=== PATIENT | female | born 1955 | race Caucasian/White ===

== ENCOUNTER 2017-09-30 07:59 | Emergency (ER) | payer OTHER ==
[~2017-09-30] VITALS: Ht 160 cm; Wt 56.2 kg
--- NOTE | 2017-09-30 07:59 | NUR ---
Patient BIBA to bed 8 at this time.
[2017-09-30 08:08] VITALS: BP 126/64
--- NOTE | 2017-09-30 08:15 | NUR ---
PATIENT EVA C/O ALOC x TODAY @ 0700. EMS STATES PT HAD BLOOD SUGAR OF 35 ON SCENE, WAS GIVEN 25GM OF D10 AND BLOOD SUGAR WAS [address]PITAL. PT IS AAOX4 NOW, NO S/S OF DISTRESS, DENIES PAIN, DENIES N/V/D, ABLE TO MOVE ALL EXTREMITIES. SKIN IS PINK/WARM/DRY; PATIENT DENIES PAIN VSS; PATIENT POSITIONED FOR COMFORT; HOB ELEVATED; BEDRAILS UP X2; BED DOWN. ER MD MADE AWARE OF PT STATUS.
--- NOTE | 2017-09-30 08:16 | NUR ---
Patient being evaluated by physician at bedside.
--- NOTE | 2017-09-30 08:39 | NUR ---
BREAKFAST OFFERED. PT IS ABLE TO EAT AND TOLERATED FOOD.
[2017-09-30 08:55] LABS: BASOPHILS % (AUTO) 0.3 % (0.0-2.0); EOSINOPHILS % (AUTO) 0.3 % (0.0-4.0); HEMOGLOBIN 10.8 g/dL (12.0-16.0); LYMPHOCYTES # (AUTO) 0.3 K/uL (2.5-16.5); LYMPHOCYTES % (AUTO) 9.2 % (20.5-51.1); MEAN CORPUSCULAR HEMOGLOBIN 30 pg (27-31); MEAN CORPUSCULAR HGB CONC 34 g/dL (33-37); MONOCYTES # (AUTO) 0.2 K/uL (0.8-1.0); MONOCYTES % (AUTO) 6.1 % (1.7-9.3); NEUTROPHILS # (AUTO) 2.5 K/uL (1.8-7.7); NEUTROPHILS % (AUTO) 84.1 % (42.2-75.2); PLATELET COUNT (AUTO) 127 K/uL (140-450); RED BLOOD CELL COUNT(AUTO) 3.63 MIL/uL (4.20-5.40); RED CELL DISTRIBUTION WIDTH 13.2 % (11.6-13.7)
[2017-09-30 09:38] LABS: ANION GAP 12.8 (8-16); CARBON DIOXIDE 22.4 mmol/L (21-32); CREATININE 1.2 mg/dL (0.6-1.3); POTASSIUM 4.2 mmol/L (3.5-5.1)
[2017-09-30 09:42] LABS: ALBUMIN 3.6 g/dL (3.4-5.0); TOTAL BILIRUBIN 0.4 mg/dL (0.0-1.0)
[2017-09-30 10:18] VITALS: BP 99/41
--- NOTE | 2017-09-30 10:18 | NUR ---
Patient discharged with v/s stable. IV site removed, Written and verbal after care instructions given and explained. Patient verbalized understanding. Ambulatory with steady gait. All questions addressed prior to discharge. Advised to follow up with PMD.
== END 2017-09-30 10:18 | disposition home or self-care (01) ==
LOC: MED 07:59 → EDBD 07:59 → MED 10:18
DX: G93.40 Encephalopathy, unspecified (principal); E11.649 Type 2 diabetes mellitus with hypoglycemia without coma; D61.818 Other pancytopenia
CPT/HCPCS: 36415; 80053; 82948; 84484; 85025; 93005; 99285

== ENCOUNTER 2017-12-06 15:12 | Emergency (ER) | payer OTHER ==
[~2017-12-06] VITALS: Ht 144.8 cm; Wt 68.9 kg
[2017-12-06 15:26] VITALS: BP 114/61
[2017-12-06] MEDS ORDERED: NACL 0.9% 1,000 ML IV SCH (15:57)
[2017-12-06] MEDS ORDERED: KETOROLAC 30 MG/ML VIAL IVP ONE (16:00)
--- NOTE | 2017-12-06 16:00 | NUR ---
PATIENT PRESENTS TO ED WITH COMPLAINTS OF FEVER AND HIGH BLOOD SUGAR. PATIENT STATES SHE ADMINISTERED 12 UNITS OF INSULIN BECAUSE SHE DID NOT FEEL WELL. PER DAUGHTER, PATIENT IS ALTERED. ACCUCHECK AT TRIAGE 334. PATIENT ALSO PRESENTS WITH A FEVER OF 102.7F. PATIENT STATES PAIN OF 0/10 AT THIS TIME; VSS; PATIENT POSITIONED FOR COMFORT; HOB ELEVATED; BEDRAILS UP X2; BED DOWN. ER MD MADE AWARE OF PT STATUS.
--- NOTE | 2017-12-06 16:15 | NUR ---
xray at bedside
[2017-12-06 16:22] LABS: BASOPHILS % (AUTO) 0.2 % (0.0-2.0); EOSINOPHILS # (AUTO) 0.1 K/uL (0-0.4); EOSINOPHILS % (AUTO) 2.4 % (0.0-4.0); HEMATOCRIT 27.7 % (36-48); HEMOGLOBIN 9.7 g/dL (12.0-16.0); LYMPHOCYTES # (AUTO) 0.2 K/uL (2.5-16.5); LYMPHOCYTES % (AUTO) 3.7 % (20.5-51.1); MEAN CORPUSCULAR HEMOGLOBIN 31 pg (27-31); MEAN CORPUSCULAR HGB CONC 35 g/dL (33-37); MONOCYTES # (AUTO) 0.2 K/uL (0.8-1.0); MONOCYTES % (AUTO) 4.4 % (1.7-9.3); NEUTROPHILS # (AUTO) 4.8 K/uL (1.8-7.7); NEUTROPHILS % (AUTO) 89.3 % (42.2-75.2); PLATELET COUNT (AUTO) 122 K/uL (140-450); RED BLOOD CELL COUNT(AUTO) 3.15 MIL/uL (4.20-5.40); RED CELL DISTRIBUTION WIDTH 13.6 % (11.6-13.7); WHITE BLOOD COUNT (AUTO) 5.3 K/uL (4.8-10.8)
[2017-12-06 16:56] LABS: PROTHROMBIN TIME 9.9 secs (10.8-13.4)
[2017-12-06 17:05] LABS: ANION GAP 14.5 (8-16); CARBON DIOXIDE 21.7 mmol/L (21-32); CREATININE 1.3 mg/dL (0.6-1.3); POTASSIUM 4.2 mmol/L (3.5-5.1)
[2017-12-06 17:09] LABS: ALBUMIN 3.6 g/dL (3.4-5.0); TOTAL BILIRUBIN 0.6 mg/dL (0.0-1.0)
[2017-12-06 18:18] VITALS: BP 101/45
--- NOTE | 2017-12-06 18:21 | NUR ---
Patient discharged with v/s stable. Written and verbal after care instructions given and explained. Patient verbalized understanding. Ambulatory with steady gait. All questions addressed prior to discharge. Advised to follow up with PMD.
[2017-12-06 18:26] LABS: APPEARANCE,URINE CLEAR (CLEAR); BILIRUBIN,URINE NEGATIVE (NEGATIVE); BLOOD, URINE NEGATIVE (NEGATIVE); COLOR,URINE YELLOW (YELLOW); LEUKOCYTE ESTERASE ,URINE NEGATIVE (NEGATIVE); NITRITE, URINE NEGATIVE (NEGATIVE); UGLUCOSE 3+ (NEGATIVE)
[2017-12-06 18:32] LABS: RBC,URINE 0-5 (RARE) /HPF (0-5); WBC,URINE 6-15 (FEW) /HPF (0-5)
== END 2017-12-06 18:21 | disposition home or self-care (01) ==
LOC: MED 15:12
DX: E11.8 Type 2 diabetes mellitus with unspecified complications (principal); R50.9 Fever, unspecified; R94.31 Abnormal electrocardiogram [ECG] [EKG]; Z86.11 Personal history of tuberculosis
CPT/HCPCS: 36415; 71045; 80053; 81001; 82948; 83605; 84484; 85025; 85610; 85730; 87040; 87086; 87186; 93005; 96361; 96374; 99285; J1885; J7030; Q0092

== ENCOUNTER 2017-12-07 01:20 | Emergency (ER) | payer OTHER ==
[~2017-12-07] VITALS: Ht 154.9 cm; Wt 68.0 kg
--- NOTE | 2017-12-07 01:23 | NUR ---
TO # 3 AMBULATORY, REPORT GIVEN TO JUAN CARLOS HERCULES
[2017-12-07] MEDS ORDERED: IBUPROFEN 400 MG TAB PO ONE (01:30)
--- NOTE | 2017-12-07 01:35 | NUR ---
pt presented we with c/o fever, slight cough and PARADA x 2 days. pt took tylenol at home and ibuprofen was given in ER at this time. pt denies n/v/d. PT is a/o x 4. pt hx is TB, DM. kna. daughter at bedeside. SKIN IS WARM/DRY; STEADY GAIT; PATIENT STATES PAIN OF 0/10 AT THIS TIME; VSS; PATIENT POSITIONED FOR COMFORT; HOB ELEVATED; BEDRAILS UP X2; BED DOWN. ER MD MADE AWARE OF PT STATUS.
[2017-12-07] MEDS ORDERED: NACL 0.9% 1,000 ML IV ONE (01:50)
--- NOTE | 2017-12-07 02:16 | NUR ---
pt is sitting in bed, daughter at bedside, vitals stable.
[2017-12-07 02:18] LABS: APPEARANCE,URINE CLEAR (CLEAR); BILIRUBIN,URINE NEGATIVE (NEGATIVE); BLOOD, URINE TRACE-I (NEGATIVE); COLOR,URINE YELLOW (YELLOW); LEUKOCYTE ESTERASE ,URINE NEGATIVE (NEGATIVE); NITRITE, URINE POSITIVE (NEGATIVE); UGLUCOSE NEGATIVE (NEGATIVE)
[2017-12-07 02:26] LABS: RBC,URINE 0-5 (RARE) /HPF (0-5); WBC,URINE 0-5 (RARE) /HPF (0-5)
[2017-12-07] MEDS ORDERED: LEVOFLOXACIN 750 MG/D5W PREMIX 150 ML IV ONE (02:50)
[2017-12-07 03:10] LABS: ALBUMIN 3.1 g/dL (3.4-5.0); ANION GAP 13.4 (8-16); CARBON DIOXIDE 21.6 mmol/L (21-32); CREATININE 1.1 mg/dL (0.6-1.3); TOTAL BILIRUBIN 0.6 mg/dL (0.0-1.0)
--- NOTE | 2017-12-07 03:14 | NUR ---
temp is down to 99.1. notified.
[2017-12-07 03:22] LABS: HEMATOCRIT 24.6 % (36-48); HEMOGLOBIN 8.2 g/dL (12.0-16.0); MEAN CORPUSCULAR HEMOGLOBIN 30 pg (27-31); MEAN CORPUSCULAR HGB CONC 34 g/dL (33-37); MEAN CORPUSCULAR VOLUME 90.9 fL (80-94); PLATELET COUNT (AUTO) 130 K/uL (140-450); RED BLOOD CELL COUNT(AUTO) 2.71 MIL/uL (4.20-5.40); RED CELL DISTRIBUTION WIDTH 13.6 % (11.6-13.7); WHITE BLOOD COUNT (AUTO) 6.2 K/uL (4.8-10.8)
[2017-12-07 03:25] LABS: EOSINOPHILS % (MANUAL) 4 % (0-4); LYMPHOCYTES % (MANUAL) 2 % (20-46); MONOCYTES % (MANUAL) 0 % (5-12)
--- NOTE | 2017-12-07 04:50 | NUR ---
Patient discharged with v/s stable. Written and verbal after care instructions given and explained. Patient alert, oriented and verbalized understanding of instructions. Ambulatory with steady gait. All questions addressed prior to discharge. ID band removed. Patient advised to follow up with PMD. Rx of cipro was given. Patient educated on indication of medication including possible reaction and side effects. Opportunity to ask questions provided and answered.
== END 2017-12-07 04:50 | disposition home or self-care (01) ==
LOC: MED 01:20
DX: N39.0 Urinary tract infection, site not specified (principal); D64.9 Anemia, unspecified; D69.6 Thrombocytopenia, unspecified; E11.9 Type 2 diabetes mellitus without complications
CPT/HCPCS: 36415; 80053; 81001; 82948; 83605; 83690; 85025; 87040; 87804; 96365; 96366; 99284; J1956; J7030